=== PATIENT | female | born 1980 | race American Indian/Alaskan Native ===

== ENCOUNTER 2019-01-01 19:10 | Emergency (ER) | payer OTHER ==
--- NOTE | 2019-01-01 19:45 | Emergency Department Report ---
Blank Doc - Documentation Documentation: This is a 38-year-old female that presents with URI symptoms and headache. This initial assessment/diagnostic orders/clinical plan/treatment(s) is/are subject to change based on patient's health status, clinical progression and re- assessment by fellow clinical providers in the ED. Further treatment and workup at subsequent clinical providers discretion. Patient/guardians urged not to elope from the ED as their condition may be serious if not clinically assessed and managed. Initial orders include: 1- Patient sent to [facility] for further evaluation and treatment 2- CXR
[2019-01-01] MEDS ORDERED: IBUPROFEN PO ONE ×2 (19:48→19:50)
--- NOTE | 2019-01-01 21:04 | XRay Report ---
PROCEDURE: XR CHEST ROUTINE 2V TECHNIQUE: 2 views of the chest HISTORY: cough COMPARISONS: None FINDINGS: Normal heart size. Right perihilar and lower lobe infiltrate. No effusion. IMPRESSION: Right perihilar and lower lobe infiltrate. Recommend follow-up to complete resolution.. This document is electronically signed by Calista Velazquez MD., January 01 2019 09:02:15 PM ET
[2019-01-01] MEDS ORDERED: ZOFRAN ODT PO ONE (21:12)
[2019-01-01 21:22] LABS: Hematocrit 32.4 % (30.3-42.9); Hemoglobin 10.5 gm/dl (10.1-14.3); Mean Corpuscular HGB Conc 32 % (30-34); Mean Corpuscular Volume 70 fl (79-97); Platelet Count 225 K/mm3 (140-440); Red Blood Count 4.61 M/mm3 (3.65-5.03); Red Cell Distribution Width 18.3 % (13.2-15.2)
[2019-01-01 21:42] LABS: Alanine Aminotransferase 15 units/L (7-56); Albumin 3.7 g/dL (3.9-5); BUN/Creatinine Ratio 9; Blood Urea Nitrogen 6 mg/dL (7-17); Calcium 8.5 mg/dL (8.4-10.2); Hemolysis Index 18
[2019-01-01] MEDS ORDERED: XYLOCAINE 1% MPF 5 mL INFILTRATI ONE (22:11)
[2019-01-01] MEDS ORDERED: ZITHROMAX PO ONE (22:11)
[2019-01-01] MEDS ORDERED: ROCEPHIN IM ONE (22:11)
--- NOTE | 2019-01-01 22:25 | Emergency Department Report ---
ED General Adult HPI - General Chief complaint: Headache Stated complaint: HEADACHE/DIARRHEA/FEVER/BODYACHES Time Seen by Provider: 01/01/19 19:44 Source: patient Mode of arrival: Ambulatory Limitations: No Limitations - History of Present Illness Initial comments: 38-year-old female flulike symptoms for 3 days. Patient reports chills, headache, sore throat, cough, chest pain with cough, vomiting, diarrhea. -: days(s) (3) Severity scale (0 -10): 3 Quality: aching Consistency: constant Improves with: none Worsens with: none Associated Symptoms: chest pain (with cough), cough, fever/chills, headaches, nausea/vomiting - Related Data Previous Rx's Medication Instructions Recorded Last Taken Type Azithromycin [Zithromax Tri-Redd] 500 mg PO QDAY #3 tablet 01/01/19 Unknown Rx Benzonatate [Tessalon Perles] 100 mg PO Q8HR PRN #20 capsule 01/01/19 Unknown Rx Naproxen [Naprosyn] 500 mg PO BID #20 tablet 01/01/19 Unknown Rx Ondansetron [Zofran Odt] 4 mg PO Q8HR PRN #20 tab.rapdis 01/01/19 Unknown Rx traMADol [Ultram] 50 mg PO Q6HR PRN #7 tablet 01/01/19 Unknown Rx Allergies Allergy/AdvReac Type Severity Reaction Status Date / Time fish derived Allergy Anaphylaxis Verified 01/01/19 19:49 bees Allergy Anaphylaxis Uncoded 01/01/19 19:40 ED Review of Systems ROS: Stated complaint: HEADACHE/DIARRHEA/FEVER/BODYACHES Other details as noted in HPI Comment: All other systems reviewed and negative Constitutional: chills Respiratory: cough. denies: shortness of breath Cardiovascular: chest pain (with cough) Gastrointestinal: nausea, vomiting, diarrhea Neurological: headache ED Past Medical Hx - Past Medical History Previous Medical History?: No - Surgical History Past Surgical History?: Yes Additional Surgical History: c sec X3, tubaligation - Social History Smoking Status: Former Smoker Substance Use Type: None - Medications Home Medications: Home Medications Medication Instructions Recorded Confirmed Last Taken Type Azithromycin [Zithromax Tri-Redd] 500 mg PO QDAY #3 tablet 01/01/19 Unknown Rx Benzonatate [Tessalon Perles] 100 mg PO Q8HR PRN #20 capsule 01/01/19 Unknown Rx Naproxen [Naprosyn] 500 mg PO BID #20 tablet 01/01/19 Unknown Rx Ondansetron [Zofran Odt] 4 mg PO Q8HR PRN #20 tab.rapdis 01/01/19 Unknown Rx traMADol [Ultram] 50 mg PO Q6HR PRN #7 tablet 01/01/19 Unknown Rx ED Physical Exam - General Limitations: No Limitations General appearance: alert, in no apparent distress - Head Head exam: Present: atraumatic, normocephalic - Eye Eye exam: Present: normal appearance - ENT ENT exam: Present: mucous membranes moist - Neck Neck exam: Present: normal inspection. Absent: meningismus - Respiratory Respiratory exam: Present: normal lung sounds bilaterally. Absent: respiratory distress - Cardiovascular Cardiovascular Exam: Present: regular rate, normal rhythm - GI/Abdominal GI/Abdominal exam: Present: soft. Absent: distended, tenderness - Extremities Exam Extremities exam: Present: normal inspection - Neurological Exam Neurological exam: Present: alert, oriented X3 - Psychiatric Psychiatric exam: Present: normal affect, normal mood - Skin Skin exam: Present: warm, dry, intact, normal color. Absent: rash ED Course Vital Signs 01/01/19 01/01/19 01/01/19 19:45 22:14 22:54 Temperature 98.5 F 98.3 F Pulse Rate 91 H 85 88 Respiratory 18 19 17 Rate Blood Pressure 128/83 Blood Pressure 130/82 115/97 [Right] O2 Sat by Pulse 100 97 99 Oximetry ED Medical Decision Making - Lab Data Result diagrams: 01/01/19 21:05 01/01/19 21:05 - Radiology Data Radiology results: report reviewed, image reviewed - Medical Decision Making - URI sx's - vitals normal - CXR shows pneumonia - rapid flu and strep negative - O2 sats nml, no resp distress - rocephin and azithro given here in ED - prescriptions given - return precautions given - outpatient follow-up advised - Differential Diagnosis pneumonia, influenza, strep throat, viral illnes Critical care attestation.: If time is entered above; I have spent that time in minutes in the direct care of this critically ill patient, excluding procedure time. ED Disposition Clinical Impression: Pneumonia Disposition: DC-01 TO HOME OR SELFCARE Is pt being admited?: No Condition: Stable Instructions: Community-acquired Pneumonia (ED) Prescriptions: Naproxen [Naprosyn] 500 mg PO BID #20 tablet Benzonatate [Tessalon Perles] 100 mg PO Q8HR PRN #20 capsule PRN Reason: Cough traMADol [Ultram] 50 mg PO Q6HR PRN #7 tablet PRN Reason: Pain Azithromycin [Zithromax Tri-Redd] 500 mg PO QDAY #3 tablet Ondansetron [Zofran Odt] 4 mg PO Q8HR PRN #20 tab.rapdis PRN Reason: Vomiting Referrals: [facility] [Provider Group] - 3-5 Days DANIELLE HAYS MD [Staff Physician] - 3-5 Days Forms: Work/School Release Form(ED) Time of Disposition: 22:25
[2019-01-01 22:55] VITALS: BP 115/97
== END 2019-01-01 23:12 | disposition home or self-care (01) ==
LOC: ED 19:10
DX: J18.9 Pneumonia, unspecified organism (principal); Z98.51 Tubal ligation status; Z87.891 Personal history of nicotine dependence; Z91.013 Allergy to seafood
CPT/HCPCS: 36415; 71046; 80053; 83690; 85027; 87116; 87400; 87430; 96372; 99284; J0696; Q0162

== ENCOUNTER 2022-02-24 23:46 | Emergency (ER) | payer SELFPAY ==
[2022-02-25] MEDS ORDERED: FAMOTIDINE 20 MG/2 ML INJ IV ONE (00:29)
[2022-02-25] MEDS ORDERED: ONDANSETRON 4 MG/2 ML INJ IV ONE ×2 (00:29→03:42)
[2022-02-25] MEDS ORDERED: KETOROLAC 30 MG/1 ML INJ IV ONE (00:29)
[2022-02-25 01:08] LABS: Bacteria,Urine 1+ /HPF (Negative); Bilirubin,Urine NEG (Negative); Blood,Urine NEG (Negative); Color,Urine Yellow (Yellow); Mucus,Urine 1+ /HPF; Protein,Urine <15 mg/dL mg/dL (Negative); Urobilinogen,Urine < 2.0 mg/dL (<2.0)
[2022-02-25 01:08] LABS: Basophils # (Auto) 0.1 K/mm3 (0.0-0.1); Basophils % (Auto) 0.8 % (0.0-1.8); Eosinophils # (Auto) 0.1 K/mm3 (0.0-0.4); Eosinophils % (Auto) 1.2 % (0.0-4.3); Hemoglobin 9.8 gm/dl (10.1-14.3); Lymphocytes # (Auto) 1.6 K/mm3 (1.2-5.4); Mean Corpuscular HGB Conc 32 % (30-34); Monocytes # (Auto) 0.8 K/mm3 (0.0-0.8); Monocytes % (Auto) 10.3 % (0.0-7.3); Platelet Count 233 K/mm3 (140-440)
[2022-02-25 01:12] LABS: Mean Corpuscular Volume 69 fl (79-97); Red Cell Distribution Width 20.1 % (13.2-15.2)
[2022-02-25 01:29] LABS: Alanine Aminotransferase 10 units/L (7-56); Albumin 3.9 g/dL (3.9-5); Blood Urea Nitrogen 9 mg/dL (7-17); Calcium 9.2 mg/dL (8.4-10.2); Hemolysis Index 3
[2022-02-25] MEDS ORDERED: cefTRIAXone/NS 1 GM/50 ML 1 GM/50 ML BAG IV ONE (01:43)
[2022-02-25 01:45] LABS: BUN/Creatinine Ratio 13
--- NOTE | 2022-02-25 02:15 | Emergency Department Report ---
ED Abdominal Pain HPI - General Chief Complaint: Abdominal Pain Stated Complaint: ABD PAIN Source: patient Mode of arrival: Ambulatory Limitations: No Limitations - History of Present Illness Initial Comments: Patient is a 41-year-old -[place] female with a history of div erticulitis and GERD who presents to the ED with complaint of acute onset persistent diffuse low abdominal pain with nausea and vomiting for the last 4 days. Patient states that the pain has been constant and persistent and that she has not been able to keep anything down especially in the last 2 days. Patient states that in the last 8 hours, the nausea and vomiting and pain have worsened. Patient denies vaginal bleeding, vaginal discharge, dysuria, urinary frequency and urgency, fever, chills, chest pain or shortness of breath, hematochezia, hematuria, diarrhea, low back pain, cough, headache, dizziness and syncope. MD Complaint: abdominal pain (Diffuse lower abdominal pain), other (Nausea and vomiting) -: Sudden, days(s) (4) Location: LLQ, RLQ, suprapubic Radiation: LLQ, RLQ, suprapubic Migration to: no migration Severity: severe Severity scale (0 -10): 10 Quality: aching, sharp Improves With: nothing Worsens With: nothing Context: possible food poisoning Associated Symptoms: denies other symptoms, nausea, vomiting, anorexia. denies: diarrhea, constipation, dysuria, hematemesis, hematochezia, melena, hematuria, other - Related Data Previous Rx's Medication Instructions Recorded Last Taken Type Azithromycin [Zithromax Tri-Redd] 500 mg PO QDAY #3 tablet 01/01/19 Unknown Rx Benzonatate [Tessalon Perles] 100 mg PO Q8HR PRN #20 capsule 01/01/19 Unknown Rx Naproxen [Naprosyn] 500 mg PO BID #20 tablet 01/01/19 Unknown Rx traMADoL [Ultram] 50 mg PO Q6HR PRN #7 tablet 01/01/19 Unknown Rx Ciprofloxacin HCl [Ciprofloxacin 500 mg PO Q12HR 7 Days #14 tab 04/04/20 Unknown Rx TAB] Dicyclomine [Bentyl] 10 mg PO QID #20 capsule 04/04/20 Unknown Rx Ciprofloxacin HCl 500 mg PO 12 #20 tab 02/25/22 Unknown Rx Dicyclomine [Bentyl] 20 mg PO Q6H PRN #30 tablet 02/25/22 Unknown Rx Ketorolac [Toradol] 10 mg PO Q8H PRN #20 tab 02/25/22 Unknown Rx Ondansetron [Zofran ODT TAB] 4 mg PO Q8HR PRN #20 tab.rapdis 02/25/22 Unknown Rx metroNIDAZOLE [Flagyl TAB] 500 mg PO Q8HR 10 Days #30 tablet 02/25/22 Unknown Rx Allergies Allergy/AdvReac Type Severity Reaction Status Date / Time fish derived Allergy Anaphylaxis Verified 01/01/19 19:49 morphine Allergy Itching Verified 04/04/20 08:35 bees Allergy Anaphylaxis Uncoded 01/01/19 19:40 ED Review of Systems ROS: Stated complaint: ABD PAIN Other details as noted in HPI Constitutional: denies: chills, fever Eyes: denies: eye pain, eye discharge, vision change ENT: denies: ear pain, throat pain Respiratory: denies: cough, shortness of breath, wheezing Cardiovascular: denies: chest pain, palpitations Endocrine: no symptoms reported Gastrointestinal: abdominal pain (Diffuse lower abdominal pain), nausea, vomi ting. denies: diarrhea Genitourinary: denies: urgency, dysuria, discharge Musculoskeletal: denies: back pain, joint swelling, arthralgia Skin: denies: rash, lesions Neurological: denies: headache, weakness, paresthesias Psychiatric: denies: anxiety, depression Hematological/Lymphatic: denies: easy bleeding, easy bruising ED Past Medical Hx - Past Medical History Previous Medical History?: Yes Hx GERD: Yes Additional medical history: DIVERTICULITIS - Surgical History Past Surgical History?: Yes Additional Surgical History: c sec X3, tubaligation - Social History Smoking Status: Current Every Day Smoker Substance Use Type: None - Medications Home Medications: Home Medications Medication Instructions Recorded Confirmed Last Taken Type Azithromycin [Zithromax Tri-Redd] 500 mg PO QDAY #3 tablet 01/01/19 Unknown Rx Benzonatate [Tessalon Perles] 100 mg PO Q8HR PRN #20 capsule 01/01/19 Unknown Rx Naproxen [Naprosyn] 500 mg PO BID #20 tablet 01/01/19 Unknown Rx traMADoL [Ultram] 50 mg PO Q6HR PRN #7 tablet 01/01/19 Unknown Rx Ciprofloxacin HCl [Ciprofloxacin 500 mg PO Q12HR 7 Days #14 tab 04/04/20 Unknown Rx TAB] Dicyclomine [Bentyl] 10 mg PO QID #20 capsule 04/04/20 Unknown Rx Ciprofloxacin HCl 500 mg PO 12 #20 tab 02/25/22 Unknown Rx Dicyclomine [Bentyl] 20 mg PO Q6H PRN #30 tablet 02/25/22 Unknown Rx Ketorolac [Toradol] 10 mg PO Q8H PRN #20 tab 02/25/22 Unknown Rx Ondansetron [Zofran ODT TAB] 4 mg PO Q8HR PRN #20 tab.rapdis 02/25/22 Unknown Rx metroNIDAZOLE [Flagyl TAB] 500 mg PO Q8HR 10 Days #30 tablet 02/25/22 Unknown Rx ED Physical Exam - General Limitations: No Limitations General appearance: alert, in no apparent distress - Head Head exam: Present: atraumatic, normocephalic, normal inspection - Eye Eye exam: Present: normal appearance, PERRL, EOMI Pupils: Present: normal accommodation - ENT ENT exam: Present: normal exam, normal orophraynx, mucous membranes moist, TM's normal bilaterally, normal external ear exam - Neck Neck exam: Present: normal inspection, full ROM. Absent: tenderness - Respiratory Respiratory exam: Present: normal lung sounds bilaterally. Absent: respiratory distress, wheezes, rales, stridor, chest wall tenderness, accessory muscle use, decreased breath sounds, prolonged expiratory - Cardiovascular Cardiovascular Exam: Present: regular rate, normal rhythm, normal heart sounds. Absent: systolic murmur, diastolic murmur, rubs, gallop - GI/Abdominal GI/Abdominal exam: Present: soft, tenderness (Palpable diffuse lower abdominal tenderness), normal bowel sounds. Absent: guarding, rebound, hyperactive bowel sounds, hypoactive bowel sounds, organomegaly - Bi-manual exam: Present: other (Pelvic exam deferred at this time) - Extremities Exam Extremities exam: Present: normal inspection, full ROM, normal capillary refill. Absent: tenderness - Back Exam Back exam: Present: normal inspection, full ROM. Absent: tenderness, CVA tenderness (R), CVA tenderness (L), muscle spasm, paraspinal tenderness, vertebral tenderness - Neurological Exam Neurological exam: Present: alert, oriented X3, CN II-XII intact, normal gait, reflexes normal - Psychiatric Psychiatric exam: Present: normal affect, normal mood - Skin Skin exam: Present: warm, dry, intact, normal color. Absent: rash ED Course Vital Signs 02/25/22 02/25/22 00:19 00:53 Temperature 98 F Pulse Rate 84 Respiratory 18 18 Rate Blood Pressure 138/82 O2 Sat by Pulse 100 Oximetry ED Medical Decision Making - Lab Data Result diagrams: 02/25/22 00:22 02/25/22 00:22 - Radiology Data Radiology results: report reviewed, image reviewed [facility] [address] [id number] Cat Scan Report Signed Patient: HELENA BALLESTEROS MR#: [id number] 25 : 1980 Acct:[id number] Age/Sex: 41 / F ADM Date: 02/24/22 Loc: ED Attending Dr: Ordering Physician: MELBA JENSEN Date of Service: 02/25/22 Procedure(s): CT abdomen pelvis w con Accession Number(s): [id number] cc: MELBA JENSEN CT ABDOMEN AND PELVIS WITH CONTRAST INDICATION: Lower abdominal pain, h/o diverticulitis. TECHNIQUE: Axial CT images were obtained through the abdomen and pelvis after IV contrast. All CT scans at this location are performed using CT dose reduction for ALARA by means of automated exposure control. COMPARISON: CT abdomen pelvis 04/04/2020 FINDINGS: LOWER CHEST: No significant abnormality. LIVER: No significant abnormality. GALLBLADDER: No significant abnormality. BILE DUCTS: No significant abnormality. PANCREAS: No significant abnormality. SPLEEN: No significant abnormality. ADRENALS: No significant abnormality. RIGHT KIDNEY and URETER: No significant abnormality. LEFT KIDNEY and URETER: No significant abnormality. STOMACH AND SMALL BOWEL: No significant abnormality COLON: moderate colonic diverticulosis with acute diverticulitis involving proximal sigmoid colon with bowel wall thickening and pericolonic inflammation. No abscess or free air. APPENDIX: Normal. PERITONEUM: No free fluid. No free air. No fluid collection. LYMPH NODES: No significant adenopathy. AORTA and ARTERIES: No significant abnormality. IVC and VEINS: No significant abnormality. URINARY BLADDER: No significant abnormality. REPRODUCTIVE ORGANS: No significant abnormality. ADDITIONAL FINDINGS: None. SKELETAL SYSTEM: No significant abnormality. IMPRESSION: 1. Moderate uncomplicated acute diverticulitis proximal sigmoid. 2. Moderate colonic diverticulosis Signer Name: Josafat Nolan MD Signed: 02/25/2022 3:22 AM Workstation Name: [id number] Transcribed By: TL Dictated By: Josafat Nolan MD Electronically Authenticated By: Josafat Nolan MD Signed Date/Time: 02/25/22321 DD/ 8 TD/TT: - Medical Decision Making This is a 41-year-old -[place] female with a history of diverticulitis and GERD who presents to the ED with complaint of acute onset persistent diffuse low abdominal pain with nausea and vomiting for the last 4 days. Patient states that the pain has been constant and persistent and that she has not been able to keep anything down especially in the last 2 days. Patient states that in the last 8 hours, the nausea and vomiting and pain have worsened. In the ED, patient is alert and oriented x3 and is not in any distress. Patient appears to be in pain. Patient was treated for pain in the ED, also received antiemetics a nd antacids as well as normal saline 1 L IV bolus x1. Lab test results were reviewed and are all nonactionable except for urinalysis that showed significant urinary tract infection. Patient also received Rocephin 1 g IV x1. Abdomen pelvis CT scan with IV contrast showed moderate uncomplicated acute diverticulitis proximal sigmoid. It also showed moderate colonic diverticulosis. Patient was treated in the ED with Flagyl and Levaquin and additional pain medications and antiemetics. On reevaluation, patient's pain is well controlled medication. Patient was discharged home on pain medications and antibiotics and advised to follow-up with her primary care physician in 7 to 10 days for reevaluation or return to the ED immediately if symptoms get worse. - Differential Diagnosis Colitis; appendicitis; UTI; ovarian cyst; diverticulitis; gastroenteritis Critical care attestation.: If time is entered above; I have spent that time in minutes in the direct care of this critically ill patient, excluding procedure time. ED Disposition Clinical Impression: Abdominal pain in female patient, Nausea and vomiting in adult patient, Acute urinary tract infection, Diverticulitis of sigmoid colon Disposition: HOME / SELF CARE / HOMELESS Is pt being admited?: No Does the pt Need Aspirin: No Condition: Stable Instructions: Nausea and Vomiting, Adult, [id number], Urinary Tract Infection, Adult, Ajay-or-Isgu, Abdominal Pain, Adult, [id number], Abdominal Pain (ED), Diverticulitis, [id number] Additional Instructions: All lab test results are reviewed and are all nonactionable except for urinalysis that showed significant urinary tract infection. Abdomen pelvis CT scan with IV contrast showed moderate uncomplicated acute diverticulitis proximal sigmoid, as well as moderate colonic diverticulosis. Therefore take medication with food, drink plenty of fluids and follow-up with your primary care physician in 7 to 10 days for reevaluation. Return to the ED immediately if symptoms get worse. Prescriptions: Dicyclomine [Bentyl] 20 mg PO Q6H PRN #30 tablet PRN Reason: Abdominal pain Ciprofloxacin HCl 500 mg PO 12 #20 tab metroNIDAZOLE [Flagyl TAB] 500 mg PO Q8HR 10 Days #30 tablet Ketorolac [Toradol] 10 mg PO Q8H PRN #20 tab PRN Reason: Pain Ondansetron [Zofran ODT TAB] 4 mg PO Q8HR PRN #20 tab.rapdis PRN Reason: Vomiting Referrals: PRIMARY [facility] [Primary Care Provider] - 3-5 Days ISAI PACE MD [Staff Physician] - 3-5 Days Forms: Work/School Release Form(ED) Time of Disposition: 04:07 Print Language: POLISH
--- NOTE | 2022-02-25 03:26 | Cat Scan Report ---
CT ABDOMEN AND PELVIS WITH CONTRAST INDICATION: Lower abdominal pain, h/o diverticulitis. TECHNIQUE: Axial CT images were obtained through the abdomen and pelvis after IV contrast. All CT scans at this location are performed using CT dose reduction for ALARA by means of automated exposure control. COMPARISON: CT abdomen pelvis 04/04/2020 FINDINGS: LOWER CHEST: No significant abnormality. LIVER: No significant abnormality. GALLBLADDER: No significant abnormality. BILE DUCTS: No significant abnormality. PANCREAS: No significant abnormality. SPLEEN: No significant abnormality. ADRENALS: No significant abnormality. RIGHT KIDNEY and URETER: No significant abnormality. LEFT KIDNEY and URETER: No significant abnormality. STOMACH AND SMALL BOWEL: No significant abnormality COLON: moderate colonic diverticulosis with acute diverticulitis involving proximal sigmoid colon wit h bowel wall thickening and pericolonic inflammation. No abscess or free air. APPENDIX: Normal. PERITONEUM: No free fluid. No free air. No fluid collection. LYMPH NODES: No significant adenopathy. AORTA and ARTERIES: No significant abnormality. IVC and VEINS: No significant abnormality. URINARY BLADDER: No significant abnormality. REPRODUCTIVE ORGANS: No significant abnormality. ADDITIONAL FINDINGS: None. SKELETAL SYSTEM: No significant abnormality. IMPRESSION: 1. Moderate uncomplicated acute diverticulitis proximal sigmoid. 2. Moderate colonic diverticulosis Signer Name: Josafat Nolan MD Signed: 02/25/2022 3:22 AM Workstation Name: [id number]
[2022-02-25] MEDS ORDERED: levoFLOXacin 500 MG TAB PO ONE (03:42)
[2022-02-25] MEDS ORDERED: metroNIDAZOLE 500 MG TAB PO ONE (03:42)
[2022-02-25] MEDS ORDERED: HYDROmorphone 1 MG/1 ML INJ IV ONE (03:43)
[2022-02-25 05:45] VITALS: BP 155/86
== END 2022-02-25 05:46 | disposition home or self-care (01) ==
LOC: ED 23:46
DX: R10.9 Unspecified abdominal pain (principal); R11.2 Nausea with vomiting, unspecified; N39.0 Urinary tract infection, site not specified; K57.92 Diverticulitis of intestine, part unspecified, without perforation or abscess without bleeding; Z91.013 Allergy to seafood; Z88.6 Allergy status to analgesic agent
CPT/HCPCS: 36415; 74177; 80053; 81001; 83690; 84703; 85025; 87086; 96365; 96375; 96376; 99284; J0696; J1170; J1885; J2405; J3490; Q9967